=== PATIENT | male | born 1975 | race Two or more races ===

== ENCOUNTER 2019-02-03 16:44 | Emergency (ER) | payer BC ==
[~2019-02-03] VITALS: Ht 188 cm; Wt 100.0 kg
[2019-02-03 17:46] LABS: BASOPHILS % 0.5 % (0.0-2.0); EOSINOPHILS % 0.9 % (0.0-5.0); HEMATOCRIT. 46.1 % (42.0-52.0); HEMOGLOBIN. 15.7 g/dL (14.0-18.0); LYMPHOCYTES % 29.7 % (20.0-50.0); MEAN CORPUSCULAR HEMOGLOBIN 30.1 pg (28.0-32.0); MEAN CORPUSCULAR VOLUME 88.4 fL (80.0-94.0); MEAN PLATELET VOLUME 7.3 fl (7.4-10.4); MONOCYTES % 6.7 % (2.0-8.0); NEUTROPHILS % 62.2 % (40.0-76.0); PLATELET 261 x1000/uL (130-400); RED BLOOD CELL COUNT 5.22 mill/uL (4.7-6.1); RED CELL DISTRIBUTION WIDTH 13.7 % (11.6-14.6)
[2019-02-03 17:51] LABS: CHLORIDE 105 mEq/L (98-107)
[2019-02-03 19:30] VITALS: BP 133/71
== END 2019-02-03 20:27 | disposition home or self-care (01) ==
LOC: ER 16:44 → EDBEDREQTM 18:37 → EDBEDREQ 18:37 → CANBEDREQ 19:16 → ER 20:27
DX: R55 Syncope and collapse (principal); I47.1 Supraventricular tachycardia; E11.9 Type 2 diabetes mellitus without complications; Z82.49 Family history of ischemic heart disease and other diseases of the circulatory system
CPT/HCPCS: 36415; 71045; 82962; 83880; 84484; 85379; 93005; 99284